=== PATIENT | female | born 1960 | race Two or more races ===

== ENCOUNTER 2016-07-10 12:11 | Outpatient (CLI) | payer BC ==
[2016-07-10] MEDS ORDERED: SUCCINYLCHOLINE CHLORIDE 200 MG/10 ML VIAL ONE (12:37)
[2016-07-10] MEDS ORDERED: ROCURONIUM 100 MG/10 ML VIAL ONE (12:37)
[2016-07-10] MEDS ORDERED: MIDAZOLAM 2 MG/2 ML VIAL ONE (12:50)
[2016-07-10] MEDS ORDERED: PROPOFOL 200 MG/20 ML VIAL ONE (12:50)
[2016-07-10] MEDS ORDERED: PROPOFOL/EMULSION 500 MG/50 ML BOTTLE IV ONE (12:50)
[2016-07-10] MEDS ORDERED: LIDOCAINE 1% 5 ML SDV ONE (13:23)
[2016-07-10] MEDS ORDERED: fentaNYL 100 MCG/2 ML INJ ONE (13:23)
[2016-07-10] MEDS ORDERED: LIDOCAINE 2% JELLY 5 ML TUBE ONE (16:03)
== END 2016-07-10 16:38 | disposition home or self-care (01) ==
LOC: FIMAGING 12:11
PROVIDERS: ATTEND Physical Medicine & Rehabilitation
PROC: BR39ZZZ Magnetic Resonance Imaging (MRI) of Lumbar Spine (ICD-10-PCS; principal; 2016-07-10 15:07)
PROC: BR30ZZZ Magnetic Resonance Imaging (MRI) of Cervical Spine (ICD-10-PCS; principal; 2016-07-10 15:07)
DX: M54.5 Low back pain (principal); M54.2 Cervicalgia; R93.8 Abnormal findings on diagnostic imaging of other specified body structures; F40.240 Claustrophobia
CPT/HCPCS: J0330; J2250; J2704; J3010

== ENCOUNTER → 2016-08-07 | Outpatient (CLI) | payer BC | LOC: FIMAGING 14:23 | PROVIDERS: ATTEND Physical Medicine & Rehabilitation | DX: N83.292 Other ovarian cyst, left side (principal) ==